=== PATIENT | male | born 1965 | race Caucasian/White ===

== ENCOUNTER 2022-10-17 19:33 | Emergency (ER) | payer OTHER ==
[~2022-10-17] VITALS: Ht 167.6 cm; Wt 91.2 kg
[2022-10-17 19:37] VITALS: BP_SYST 146
--- NOTE | 2022-10-17 19:45 | NUR ---
Triaged and placed patient in ER bed 7 for evaluation. Report given to Mary Grace CALVILLO for continuity of care. VSS, no acute respiratory distress noted at this time. Instructed to notify ED staff for any changes in condition or worsening of symptoms. Patient verbalized understanding.
--- NOTE | 2022-10-17 19:50 | NUR ---
Pt is noted alert, responsive as he came from home c/o got sliced on the head by a Ceiling Fan with Laceration on the back off head. Pt care continue with Cold Pack in place as awaits MD orders.
--- NOTE | 2022-10-17 20:10 | NUR ---
Dr. Pierson is at bedside examining the patient.
[2022-10-17] MEDS ORDERED: cefTRIAXone 1 GM in LIDOCAINE 1%, 20 ML MDV 2.1 ML IM ONE (20:15)
[2022-10-17] MEDS ORDERED: DIPHTH,PERTUSS(ACELL),TET VAC 0.5 ML VIAL (Tdap) I.M. ONE (20:15)
--- NOTE | 2022-10-17 20:30 | NUR ---
Pt rewamin alert, responsive as he is been medicated with 0.5mg IM off Tdap and Rocephine 1mg IM given as ordered. Pt care continue.
[2022-10-17 20:38] VITALS: BP_SYST 138
[2022-10-17] MEDS ORDERED: NAPR-690 PO (20:38)
[2022-10-17] MEDS ORDERED: CEPH-548 PO (20:38)
--- NOTE | 2022-10-17 20:42 | NUR ---
Patient given written and verbal discharge instructions BY DR. OLGUIN and verbalizes understanding. ER MD discussed with patient the results and treatment provided. Patient in stable condition. ID arm band removed. Rx of CEPHALEXIN AND NAPROXEN given. Patient educated on pain management and to follow up with PMD. Pain Scale 0/10. Opportunity for questions provided and answered. Medication side effect fact sheet provided.
== END 2022-10-17 20:43 | disposition home or self-care (01) ==
LOC: SED 19:33
DX: S01.01XA Laceration without foreign body of scalp, initial encounter (principal); E11.9 Type 2 diabetes mellitus without complications; I10 Essential (primary) hypertension; Z79.899 Other long term (current) drug therapy; W29.2XXA Contact with other powered household machinery, initial encounter; Y93.89 Activity, other specified; Y92.89 Other specified places as the place of occurrence of the external cause; Y99.8 Other external cause status
CPT/HCPCS: 99284; 90715; 96372; 90471; 12001; J0696; J2001

== ENCOUNTER 2022-10-24 11:21 | Emergency (ER) | payer OTHER ==
[~2022-10-24] VITALS: Ht 167.6 cm; Wt 90.7 kg
[~2022-10-24 11:21] MED LIST: CEPH-548 PO; NAPR-690 PO
[2022-10-24 11:28] VITALS: BP_SYST 134
--- NOTE | 2022-10-24 11:31 | NUR ---
Patient to ER bed [facility] REPORT GIVEN TO JODI COLLINS
--- NOTE | 2022-10-24 11:32 | NUR ---
Pt bib daughter from home. Wound check and staple removal. Pt is aaox3, no redness, no drainage, pt is afebrile denies chills. Pt states wound care has been "going well" Pt completed ABX as prescribed from last weeks visit. SPIKE, skin intact, no signs of distress.
--- NOTE | 2022-10-24 11:36 | NUR ---
ER at bedside examining patient.
--- NOTE | 2022-10-24 11:41 | NUR ---
MICHELLE Gallegos removed (7) stables cleansed and pat dry area. Pt tolerated removal well. Pt educated on wound healing process.
--- NOTE | 2022-10-24 12:15 | NUR ---
Patient given written and verbal discharge instructions and verbalizes understanding. ER MD discussed with patient the results and treatment provided. Patient in stable condition. ID arm band removed. Patient educated on pain management and to follow up with PMD. Opportunity for questions provided and answered. Medication side effect fact sheet provided.
[2022-10-24 13:31] VITALS: BP_SYST 134
== END 2022-10-24 12:15 | disposition home or self-care (01) ==
LOC: SED 11:21
DX: Z48.02 Encounter for removal of sutures (principal); E11.9 Type 2 diabetes mellitus without complications; I10 Essential (primary) hypertension; Z79.899 Other long term (current) drug therapy
CPT/HCPCS: 99281